=== PATIENT | male | born 1985 | race African-American/Black ===

== ENCOUNTER → 2018-10-09 | Outpatient (CLI) | payer OTHER ==
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
--- NOTE | 2018-10-09 17:33 | Diagnostic Imaging Report ---
LEFT KNEE - 3 Images HISTORY: Acute pain COMPARISON: None available. FINDINGS: Bones: No acute displaced fracture. No aggressive osseous lesion. Joints: Osseous alignment is within normal limits and the joint spaces are well-maintained. Soft tissues: The soft tissues appear unremarkable. IMPRESSION: No acute radiographic abnormality. Signed by: Dr. Ronak Quiroga D.O., M.M.M. on 10/09/2018 5:30 PM
== END ==
LOC: RAD 16:42
PROVIDERS: ATTEND Internal Medicine
DX: Z00.00 Encounter for general adult medical examination without abnormal findings (principal); M25.562 Pain in left knee
CPT/HCPCS: 71046